=== PATIENT | male | born 1955 | race Caucasian/White ===

== ENCOUNTER 2021-01-16 08:49 | Inpatient (IN) | payer BC ==
[~2021-01-16] VITALS: Ht 177.8 cm; Wt 100.0 kg
[2021-01-16 09:48] LABS: BASOPHILS % (AUTO) 0.2 % (0-1); EOSINOPHILS # (AUTO) 0.2 X10'3 (0-0.9); HEMATOCRIT 48.8 % (42.0-52.0); HEMOGLOBIN 16.7 g/dl (14.0-17.9); LYMPHOCYTES # (AUTO) 0.6 X10'3 (1.1-4.8); LYMPHOCYTES % (AUTO) 7.1 % (21-51); MEAN CORPUSCULAR HEMOGLOBIN 31.4 PG (27.0-31.0); MEAN CORPUSCULAR HGB CONC 34.2 g/dL (33.0-36.5); MEAN CORPUSCULAR VOLUME 91.6 FL (78-98); MEAN PLATELET VOLUME 8.4 FL (7.4-10.4); MONOCYTES # (AUTO) 0.6 X10'3 (0-0.9); MONOCYTES % (AUTO) 7.7 % (2-12); PLATELET COUNT 186 X10'3 (140-440); RED BLOOD COUNT 5.33 X10'6 (4.70-6.10); RED CELL DISTRIBUTION WIDTH 15.6 % (11.5-14.5); WHITE BLOOD COUNT 8.5 X10'3 (4.5-11.0)
[2021-01-16 10:13] LABS: ALANINE AMINOTRANSFERASE 19 U/L (12-78); ALBUMIN 3.6 G/DL (3.4-5.0); ALBUMIN/GLOBULIN RATIO 0.9 (1.1-1.5); ALKALINE PHOSPHATASE 100 IU/L (46-116); ANION GAP 8 (8-16); ASPARTATE AMINO TRANSFERASE 16 U/L (10-37); BLOOD UREA NITROGEN 12 MG/DL (7-18); BUN/CREATININE RATIO 12.8 (5.4-32.0); CALCIUM 8.9 MG/DL (8.5-10.1); CHLORIDE 103 MMOL/L (99-107); CREATININE 0.94 MG/DL (0.60-1.10); GLUCOSE 114 MG/DL (70-104); POTASSIUM 4.3 MMOL/L (3.5-5.1); SODIUM 139 MMOL/L (135-145); TOTAL CARBON DIOXIDE 27.8 MMOL/L (24-32); TOTAL PROTEIN 7.5 G/DL (6.4-8.2); eGFR 81 ML/MIN
--- NOTE | 2021-01-16 12:36 | NUR ---
vascular at bedside
[2021-01-16 13:35] LABS: CLARITY,URINE CLEAR (Clear); GLUCOSE, URINE NEGATIVE (Neg); KETONES,URINE TRACE mg/dl (Neg); LEUKOCYTE ESTERASE ,URINE TRACE (Neg); NITRITES, URINE NEGATIVE (Neg); OCCULT BLOOD,URINE NEGATIVE (Neg); PROTEIN,URINE NEGATIVE (Neg); UROBILINOGEN,URINE 0.2 E.U/dL (0.2-1.0)
[2021-01-16 13:39] LABS: COLOR,URINE DARK YELLOW (Yellow); UA COLLECTION TYPE URINAL
[2021-01-16 13:42] LABS: BACTERIA,URINE FEW /HPF (Neg); MUCUS STRANDS MANY /LPF (Neg); RBC,URINE NONE SEEN /HPF (0-2); SQUAMOUS EPITHELIAL CELL,UR FEW /LPF (FEW); WBC,URINE 0-4 /HPF (0-4)
[2021-01-16 13:46] LABS: PARTIAL THROMBOPLASTIN TIME 31 SECONDS (22-32)
[2021-01-16] MEDS ORDERED: heparin 10,000 units/1 ML INJ IV PRN (13:50)
[2021-01-16] MEDS ORDERED: heparin 25,000 UNIT/250ml bag 250 ML IV SCH (13:50)
[2021-01-16] MEDS ORDERED: heparin 10,000 units/1 ML INJ IV ONE ×2 (13:50→13:55)
[2021-01-16] MEDS ORDERED: NO HOME MEDS (14:29)
[2021-01-16] MEDS ORDERED: morphine 2 MG/ML inj. syringe IV PRN ×2 (14:35)
[2021-01-16] MEDS ORDERED: HYDROcodone/acetaminophen 5mg/325mg tablet PO PRN (14:35)
[2021-01-16] MEDS ORDERED: magnesium hydroxide 30ml (MOM) UD suspension PO PRN (14:35)
[2021-01-16] MEDS ORDERED: ondansetron/PF 4mg/2ml inj IV PRN (14:35)
[2021-01-16] MEDS ORDERED: HYDROcodone/acetaminophen 10/325mg tab PO PRN (14:35)
[2021-01-16] MEDS ORDERED: mag hydrox/Alum hydrox/simeth 30ml oral suspension PO PRN (14:35)
[2021-01-16] MEDS ORDERED: acetaminophen 325mg tablet PO PRN ×2 (14:35)
--- NOTE | 2021-01-16 15:45 | NUR ---
Patient in room [facility]TH[facility] 4021. I have received report from Margo and had the opportunity to ask questions and assume patient care.
[2021-01-16 16:43] VITALS: BP 145/75
--- NOTE | 2021-01-16 18:20 | NUR ---
Patient in room [facility]TH[facility] 4021. I have received report from MATIAS Rodríguez and had the opportunity to ask questions and assume patient care.
--- NOTE | 2021-01-16 18:27 | NUR ---
Problems reprioritized. Patient report given, questions answered & plan of care reviewed with Clementian SALCEDO.
[2021-01-16] MEDS: apixaban 5mg tablet PO SCH (19:34)
[2021-01-16 22:00] VITALS: BP 135/81
[2021-01-16 23:44] VITALS: BP 136/88
[2021-01-17 00:06] LABS: MAGNESIUM 2.2 MG/DL (1.5-2.4)
[2021-01-17 05:30] VITALS: BP 139/91
[2021-01-17 06:23] LABS: BASOPHILS % (AUTO) 0.6 % (0-1); EOSINOPHILS # (AUTO) 0.3 X10'3 (0-0.9); EOSINOPHILS % (AUTO) 4.8 % (0-6); HEMATOCRIT 44.3 % (42.0-52.0); HEMOGLOBIN 15.1 g/dl (14.0-17.9); LYMPHOCYTES # (AUTO) 0.9 X10'3 (1.1-4.8); LYMPHOCYTES % (AUTO) 14.1 % (21-51); MEAN CORPUSCULAR HEMOGLOBIN 31.4 PG (27.0-31.0); MEAN CORPUSCULAR HGB CONC 34.1 g/dL (33.0-36.5); MEAN CORPUSCULAR VOLUME 91.8 FL (78-98); MEAN PLATELET VOLUME 8.9 FL (7.4-10.4); MONOCYTES # (AUTO) 0.8 X10'3 (0-0.9); MONOCYTES % (AUTO) 12.2 % (2-12); NEUTROPHILS # (AUTO) 4.6 X10'3 (1.8-7.7); NEUTROPHILS % (AUTO) 68.3 % (42-75); PLATELET COUNT 174 X10'3 (140-440); RED BLOOD COUNT 4.83 X10'6 (4.70-6.10); RED CELL DISTRIBUTION WIDTH 15.3 % (11.5-14.5); WHITE BLOOD COUNT 6.7 X10'3 (4.5-11.0)
--- NOTE | 2021-01-17 06:25 | NUR ---
Patient in room [facility]TH[facility] 4021. I have received report from MATIAS Mcrae and had the opportunity to ask questions and assume patient care.
[2021-01-17 06:27] LABS: ALBUMIN 3.1 G/DL (3.4-5.0); ANION GAP 6 (8-16); BLOOD UREA NITROGEN 11 MG/DL (7-18); BUN/CREATININE RATIO 10.9 (5.4-32.0); CALCIUM 8.8 MG/DL (8.5-10.1); CHLORIDE 102 MMOL/L (99-107); CREATININE 1.01 MG/DL (0.60-1.10); GLUCOSE 103 MG/DL (70-104); POTASSIUM 4.1 MMOL/L (3.5-5.1); SODIUM 137 MMOL/L (135-145); eGFR 74 ML/MIN
--- NOTE | 2021-01-17 06:37 | NUR ---
Problems reprioritized. Patient report given, questions answered & plan of care reviewed with MATIAS Warner.
[2021-01-17 10:00] VITALS: BP 142/87
[2021-01-17] MEDS: apixaban 5mg tablet PO SCH (10:16)
[2021-01-17] MEDS ORDERED: APIX5TAB3 PO (16:09)
--- NOTE | 2021-01-17 17:10 | NUR ---
DC inst provided to pt. IV DC'd, tip intact. All belongings sent w/pt. WC to vehicle.
--- NOTE | 2021-01-17 17:17 | NUR ---
Escorted patient out to vehicle via wheelchair with no complications
[2021-01-23] MEDS ORDERED: apixaban 5mg tablet PO SCH (20:00)
== END 2021-01-17 17:10 | disposition home or self-care (01) | DRG 301 ==
LOC: ER 08:50 → ED HOLD 14:35 → ORTHO 4S 16:14
PROVIDERS: ADMIT Internal Medicine; ATTEND Internal Medicine
DX: I82.442 Acute embolism and thrombosis of left tibial vein (principal); Z20.822 Contact with and (suspected) exposure to COVID-19; I82.412 Acute embolism and thrombosis of left femoral vein; I82.432 Acute embolism and thrombosis of left popliteal vein
CPT/HCPCS: 36415; 73610; 80048; 80053; 81001; 81479; 83605; 83735; 83880; 83891; 83894; 83898; 84145; 85025; 85300; 85301; 85303; 85305; 85306; 85610; 85730; 86146; 86147; 87040; 87081; 87088; 87635; 93005; 93971; 96365; 96375; 97116; 99285; G0378; J1644